=== PATIENT | male | born 1935 | race Caucasian/White ===

== ENCOUNTER 2016-09-16 11:33 | Inpatient (IN) ==
[2016-09-16] MEDS ORDERED: Acetaminophen 325 MG TABLET PO PRN (14:46)
[2016-09-16] MEDS ORDERED: Naloxone 0.4 MG/ML INJ IVP PRN (14:46)
[2016-09-16] MEDS ORDERED: *HR* Dextrose 50 % in Water (Syg) 50 ML SYRINGE IVP PRN (14:51)
[2016-09-16] MEDS ORDERED: Dextrose Gel 15 GM PO PRN ×2 (14:51)
[2016-09-16] MEDS ORDERED: D5% in Water 1,000 ML IVC PRN (14:51)
--- NOTE | 2016-09-16 15:18 | Internal Med History&Physical ---
<Danie Cronin - Last Filed: 09/16/16 18:00> Date of Encounter: 09/16/16 Internal Medicine - H&P: HPI History of present illness: Mr. Macias is a 81 year old male Internal Medicine - H&P: Meds Aspirin 81 mg PO DAILY 09/16/16 [History] Atorvastatin [Lipitor] 10 mg PO HS 09/16/16 [History] BuPROPion [Wellbutrin] 75 mg PO BID 09/16/16 [History] Citalopram Hydrobromide [Celexa] 10 mg PO DAILY 09/16/16 [History] Glimepiride [Amaryl] 1 mg PO DAILY 09/16/16 [History] Lovastatin 40 mg PO DAILY 09/16/16 [History] Memantine [Namenda] 10 mg PO DAILY 09/16/16 [History] Metformin HCl [Glucophage] 1,000 mg PO BID 09/16/16 [History] Metoprolol XL (24 HR) Succ [Toprol XL] 25 mg PO DAILY 09/16/16 [History] Omeprazole [PriLOSEC] 20 mg PO DAILY 09/16/16 [History] Allergies No Known Allergies Allergy (Verified 09/16/16 15:10) All Systems PM: A 10-system review of systems was performed and is negative for pertinent findings except as documented above in the HPI. - Constitutional Vitals: Temp Pulse Resp BP Pulse Ox 97.8 F 73 16 118/79 94 09/16/16 15:18 09/16/16 15:18 09/16/16 15:18 09/16/16 15:18 09/16/16 15:18 Internal Med - H&P Results - Labs Labs: Cardiac Enzymes 09/16/16 Range/Units 15:50 Troponin I 0.01 (0-0.03) ng/mL - Attending Attestation I examined this patient and my medical decision-making was reviewed with the Advanced Practice Nurse. I agree with the documented findings, disposition and treatment plan as described except to the extent set forth below. Pt cannot provide history due to dementia. He is very uncomfortable due to pain. Right lower extremity is shortened and externally rotated. Plan: Pain control with Vicodin and IV morphine. He does have a history of CAD status post CABG. He does not have decompensated heart disease, no valvular disease, no uncontrolled arrhythmia. Based on comorbidities and unknown exercise capacity he carries a moderate postoperative risk. He does not require any further cardiovascular workup as this would be more detrimental to his clinical condition given the urgency of the surgery. Okay to proceed with surgical repair tomorrow. He is at high risk for morbidity and complications due to treatment with IV opiates and poor baseline mental status. <Demetrice Collins - Last Filed: 09/16/16 21:56> Date of Encounter: 09/16/16 Time of Encounter: 15:15 Assessment and Plan (1) Hip fracture, intertrochanteric Current visit: Yes Status: Acute Patient had mechanical fall and was found to have right hip communuted intertrochanteric hip fracture, transferred from [facility]. On exam, right leg is shortened and externally rotated. Peripheral pulses, sensation intact. Orthopedic surgery, Dr. Carr consulted and plans to perform surgery tomorrow. Bedrest Morphine PRN for pain Narcan PRN for respiratory depression NPO after midnight for planned surgery. Qualifiers: Encounter type: initial encounter Fracture type: closed Fracture alignment: displaced Laterality: right Qualified Code(s): S72.141A - Displaced intertrochanteric fracture of right femur, initial encounter for closed fracture (2) CAD (coronary artery disease) Current visit: Yes Status: Acute Patient with CAD, s/p CABG in 2006. Patient denies any chest pain or shortness of breath. troponin negative. EKG showed sinus rhythm with occasional PVCs. Will trend troponins in case fall was evidence of silent UT. Patient also has pacemaker for history of sick sinus syndrome. Patient is intermediate risk for surgery based on his cardiac history. Qualifiers: Coronary Disease-Associated Artery/Lesion type: [place] artery [place] vs. transplanted heart: [place] heart Associated angina: angina presence unspecified Qualified Code(s): I25.10 - Atherosclerotic heart disease of [place] coronary artery without angina pectoris (3) Type 2 diabetes mellitus Current visit: Yes Status: Acute diabetic diet. check blood sugars ACHS, and Q6hr while NPO Hold metformin and glimeperide sliding scale correction dose ACHS, and Q6h while NPO hypoglycemic protocol. 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 Continue home dose of Namenda. Fall precautions. Qualifiers: Dementia type: Alzheimer's disease Alzheimer's disease onset: unspecified onset Dementia behavioral disturbance: with behavioral disturbance Qualified Code(s): G30.8 - Other Alzheimer's disease; F02.81 - Dementia in other diseases classified elsewhere with behavioral disturbance (5) DVT prophylaxis Current visit: Yes Status: Acute sequential compression devices start pharmacologic prophylaxis after surgery tomorrow. Internal Medicine - H&P: HPI Chief complaint: fall, hip pain Admitted From: Emergency Dept Plans for Post Hospital Care: Home History of present illness: Mr. Macias is a 81 year old male with diabetes, hypertension, coronary artery disease status post CABG in 2006, sick sinus syndrome status post pacemaker placement, COPD, advanced dementia who was transferred from [facility] after suffering a fall and hip fracture. Patient was in the geropsychiatry unit for worsening dementia with aggressive behavior, and fell while there, he was unable to get him up because of right hip in the pain. He was brought to the emergency department where x-ray reveals comminuted intertrochanteric hip fracture. Patient is oriented to person only, and is able to verbalize pain in his right leg, but denies any other complaints. Other evaluation at [facility] [place] normal troponin, normal white blood cell count of 7.7, elevated creatinine of 1.43, however unknown baseline. CT of the head showed marked atrophy and chronic ischemic changes, CT of the cervical spine showed no fracture. On exam, patient is alert, oriented to person only, does follow commands. Lungs are clear to auscultation bilaterally, heart has regular rate and rhythm, right leg is shortened and externally rotated with tenderness to palpation over hip and right upper leg. Past Med Surg Social Fam HX - Past Medical History Medical history: COPD, coronary artery disease, dementia, diabetes, hyperlipidemia, hypertension, myocardial infarction Psychiatric history: other - Past Surgical History Surgical History: coronary bypass (CABG), herniorrhaphy, orthopedic, other ( back surgery), pacemaker - Social History Smoking Status: Former smoker Smokeless Tobacco Status: No Alcohol use: none Drug use: none - Family History Mother Living Status: Hx Family Endocrine Disorder: Yes (diabetes) ROS unobtainable: due to mental status All Systems PM: A 10-system review of systems was performed and is negative for pertinent findings except as documented above in the HPI. - Head Head exam: Present: atraumatic, normocephalic - Eye Eye exam: Present: PERRL, conjuntiva pink, sclera anicteric Pupils: Present: PERRL - Neck Neck exam general surgery: Present: supple, trachea midline. Absent: lymphadenopathy - Respiratory Respiratory exam: Present: CTAB. Absent: accessory muscle use, rales, rhonchi, wheezes - Cardiovascular Cardiovascular exam: Present: RRR, +S1, +S2. Absent: diastolic murmur, gallop, rubs, systolic murmur - GI/Abdominal GI/Abdominal exam: Present: normal bowel sounds, soft, no peritoneal signs. Absent: distended, tenderness - Extremities Exam Extremities exam: Present: warm, radial pulses palpable and symetrical. Absent : calf tenderness, cyanotic, pedal edema Additional comments: right leg shortened and externally rotated. Tender to palpation over hip, thigh and knee. - Neurological Exam Neurological exam: Present: CN II-XII intact. Absent: oriented X3, facial droop , speech deficit - Skin Skin exam: Present: dry, intact Internal Med - H&P Results - Labs Labs: Labs from [facility]: Hgb 12.8 Hct 38 WBC 7.7 PLT 195 Na 139 K 4.4 Cl 102 CO2 28 BUN 37 Cr 1.43 Glu 161 PT 15.6 INR 1.52 PTT 23.6
[2016-09-16 15:40] LABS: Hemoglobin A1C 6.2 %
[2016-09-16] MEDS: 0.9 % Sodium Chloride 1,000 ML IVC SCH (15:59)
[2016-09-16] MEDS: *HR* HYDROcodone/Acet 5/325 mg TABLET PO PRN ×2 (16:09→20:27)
[2016-09-16] MEDS ORDERED: Insulin LISPRO 300 UNITS/3 ML VIAL SQ SCH ×2 (16:30→21:00)
[2016-09-16] MEDS: *HR* Morphine 2 MG/ML SYRINGE IVP PRN (17:27)
--- NOTE | 2016-09-16 19:01 | Anesthesia Evaluation PreOp ---
Date of Encounter: 09/16/16 Time of Encounter: 18:59 - Past History Planned Operation: Right Hip TFN Cardiac History: NH, HTN, Hyperlipidemia, Cardiac Surgery (CABG x 3), Pacemaker/ ICD (medtronic pacemaker on right side) Pulmonary History: Former smoker (quit 15 years ago), COPD HISTORIAN DRAMATIC ARTS History: Other (Alzheimer's) Other Medical History: Diabetes Type II Anesthesia History: No Prior Anesthetic Complications, Past Anesthesia Alcohol Use: none Drug use: none Medications and Allergies Aspirin 81 mg PO DAILY 09/16/16 [History] Atorvastatin [Lipitor] 10 mg PO HS 09/16/16 [History] BuPROPion [Wellbutrin] 75 mg PO BID 09/16/16 [History] Citalopram Hydrobromide [Celexa] 10 mg PO DAILY 09/16/16 [History] Glimepiride [Amaryl] 1 mg PO DAILY 09/16/16 [History] Lovastatin 40 mg PO DAILY 09/16/16 [History] Memantine [Namenda] 10 mg PO DAILY 09/16/16 [History] Metformin HCl [Glucophage] 1,000 mg PO BID 09/16/16 [History] Metoprolol XL (24 HR) Succ [Toprol XL] 25 mg PO DAILY 09/16/16 [History] Omeprazole [PriLOSEC] 20 mg PO DAILY 09/16/16 [History] Allergies No Known Allergies Allergy (Verified 09/16/16 15:10) - Meds/Allergy Pre-op Review Medications Reviewed: Yes Allergies Reviewed: Yes Beta Blockers on Current Med List: Yes Anesthesia Results - Imaging Additional studies: 05/25/2011 Stress Impression: Stress Note * Resting ECG demonstrated normal sinus rhythm. * Occasional PVCs noted prior to exam beginning. * Pharmacologic stress ECG is non diagnostic for ischemia due to did not reach target heart rate. Gated EF % * Gated EF = 60% Nuclear comments * Negative for ischemia. * Negative for infarct. My Category * small infero septal defect - probable artifact 05/25/2011 Echo Impressions: Left Ventricle * LVEF 60 % * Left Ventricle: Normal size, function and thickness. Aortic Valve * The aortic valve is Tricuspid. * Aortic valve is mildly sclerotic. * Mild aortic regurgitation. Anesthesia Exam Vital Signs/O2 Sat/Glucose, Most Recent Temp Pulse Resp BP Pulse Ox 97.8 F 73 16 118/79 94 09/16/16 15:18 09/16/16 15:18 09/16/16 15:18 09/16/16 15:18 09/16/16 15:18 Blood Glucose* 203 Height: 5'6''/1.68 m Weight: 174 lbs/78.9 kg - HEENT Mallampati: II Teeth: Edentulous Oral Opening: Greater than 3 - HISTORIAN DRAMATIC ARTS LOC: Uncooperative (unable to assess), Unable to assess - Cardiac Rhythm: Regular Murmur: None - Pulmonary Breath Sounds: bilateral Clear Respiratory Effort: Symmetrical Anesthesia Assess/Plan ASA Score: 3 Modified [place] Scale for Level of Consciousness: Anixous, agitated or restless Anesthetic Plan: General, Precautions (Patient's daughter (POA) understands that patient is at increased risk for perioperative complications including myocardial infarct, arrhythmias, CVA, post op vent support/ICU stay, and . Patient's daughter (POA) wishes to proceed.) Monitoring Plan: Standard Monitors Recovery Plan: PACU
[2016-09-17] MEDS: Insulin LISPRO 300 UNITS/3 ML VIAL SQ SCH ×4 (00:11→20:07)
[2016-09-17 04:51] LABS: Basophils # 0.1 K/mcL (0.0-0.2); Basophils % 0.6 %; Eosinophils # 0.3 K/mcL (0.0-0.6); Eosinophils % 2.8 %; Hematocrit 35.6 % (37.5-50.1); Hemoglobin 11.7 g/dL (12.9-16.9); Immature Granulocytes % 0.5 % (0-4); Lymphocytes # 0.7 K/mcL (0.6-4.6); Lymphocytes % 7.4 %; Mean Corpuscular HGB Conc 32.9 g/dL (31.6-35.5); Mean Corpuscular Hemoglobin 31.6 pg (28.0-33.3); Mean Corpuscular Volume 96.2 fL (83.0-100.0); Mean Platelet Volume 10.5 fL (9.4-12.4); Monocytes # 0.7 K/mcL (0.0-1.3); Monocytes % 7.6 %; Neutrophils # 7.5 K/mcL (1.6-8.9); Platelet Count 162 K/mcL (140-400); Red Cell Distribution Width 12.9 % (11.5-14.5); Segmented Neutrophils % 81.1 %
[2016-09-17 05:06] LABS: Calcium 8.8 mg/dL (8.6-10.8); Potassium 4.8 mEq/L (3.5-4.5)
[2016-09-17] MEDS: *HR* Morphine 2 MG/ML SYRINGE IVP PRN ×4 (05:29→23:33)
[2016-09-17] MEDS: 0.9 % Sodium Chloride 1,000 ML IVC SCH ×2 (05:34→20:22)
[2016-09-17] MEDS ORDERED: Metoprolol XL (24 HR) Succ 25 MG TAB.ER.24H PO SCH ×2 (07:00→09:00)
--- NOTE | 2016-09-17 07:11 | Orthopedic Consult Note ---
Date of Encounter: 09/17/16 Time of Encounter: 07:09 History of Present Illness HPI: Mr. Macias is a 81 year old male Who fell yesterday sustaining a injury to his right hip. Patient has history of dementia. Is here with his family. Patient awake and alert Right lower extremity shortened externally rotated Decreased range of motion secondary to pain X-rays show a displaced right intratrochanteric/subtrochanteric hip fracture Patient ambulate before plan is for right hip open reduction internal fixation. We reviewed the risks and benefits as well as recovery. All questions were answered. Past Med Surg Social Fam HX - Past Medical History Medical history: COPD, coronary artery disease, dementia, diabetes, hyperlipidemia, hypertension, myocardial infarction Psychiatric history: other - Past Surgical History Surgical History: coronary bypass (CABG), herniorrhaphy, orthopedic, other ( back surgery), pacemaker - Social History Smoking Status: Former smoker Smokeless Tobacco Status: No Alcohol use: none Drug use: none - Family History Mother Living Status: Hx Family Endocrine Disorder: Yes (diabetes) Medications and Allergies Aspirin 81 mg PO DAILY 09/16/16 [History] Atorvastatin [Lipitor] 10 mg PO HS 09/16/16 [History] BuPROPion [Wellbutrin] 75 mg PO BID 09/16/16 [History] Citalopram Hydrobromide [Celexa] 10 mg PO DAILY 09/16/16 [History] Glimepiride [Amaryl] 1 mg PO DAILY 09/16/16 [History] Lovastatin 40 mg PO DAILY 09/16/16 [History] Memantine [Namenda] 10 mg PO DAILY 09/16/16 [History] Metformin HCl [Glucophage] 1,000 mg PO BID 09/16/16 [History] Metoprolol XL (24 HR) Succ [Toprol XL] 25 mg PO DAILY 09/16/16 [History] Omeprazole [PriLOSEC] 20 mg PO DAILY 09/16/16 [History] Allergies No Known Allergies Allergy (Verified 09/16/16 15:10) All Systems Reviewed: A 10-system review of systems was performed and is negative for pertinent findings except as documented above in the HPI. Physical Exam - Constitutional Vitals: Temp Pulse Resp BP Pulse Ox 98.2 F 85 16 131/85 92 09/17/16 07:07 09/17/16 07:07 09/17/16 07:07 09/17/16 07:07 09/17/16 07:07 Results - Labs Result Diagrams: 09/17/16 04:40 09/17/16 04:40 Labs: Abnormal lab results RBC 3.70 M/mcL (4.19-5.50) L 09/17/16 04:40 Hgb 11.7 g/dL (12.9-16.9) L 09/17/16 04:40 Hct 35.6 % (37.5-50.1) L 09/17/16 04:40 Potassium 4.8 mEq/L (3.5-4.5) H 09/17/16 04:40 BUN 31 mg/dL (8-26) H 09/17/16 04:40 Creatinine 1.41 mg/dL (0.72-1.25) H 09/17/16 04:40 Est GFR ( Amer) 58 (> 60) L 09/17/16 04:40 Est GFR (Non-Af Amer) 48 (> 60) L 09/17/16 04:40 Glucose 145 mg/dL (70-99) H 09/17/16 04:40 POC Glucose 163 (58-89) H 09/16/16 23:40 Hemoglobin A1c 6.2 % (-5.6) H 09/16/16 15:05 H & H 09/17/16 Range/Units 04:40 Hgb 11.7 L (12.9-16.9) g/dL Hct 35.6 L (37.5-50.1) % All other labs normal. Consult Discharge Plan - Plan Referrals: Maribel Meeks MD [Primary Care Provider] -
[2016-09-17] MEDS ORDERED: *HR* Propofol 200 MG/20 ML VIAL IVP ONE (07:14)
[2016-09-17] MEDS ORDERED: *HR* Succinylcholine 200 MG/10 ML VIAL IVP ONE (07:14)
[2016-09-17] MEDS ORDERED: *HR* FentaNYL (PF) 100 MCG/2 ML VIAL ONE (07:14)
[2016-09-17] MEDS ORDERED: Lidocaine -MPF 2% 2 ML VIAL ONE (07:14)
[2016-09-17] MEDS ORDERED: Ondansetron 4 MG/2 ML VIAL ONE (07:14)
[2016-09-17] MEDS ORDERED: 0.9 % Sodium Chloride 500 ML ONE (07:28)
[2016-09-17] MEDS ORDERED: Famotidine 20 MG/2 ML VIAL ONE (07:32)
[2016-09-17] MEDS ORDERED: Acetaminophen IV 1,000 MG/100 ML INFUS..BTL ONE (07:33)
[2016-09-17] MEDS ORDERED: Lidocaine -MPF 4% 5 ML AMPUL ONE (07:43)
[2016-09-17] MEDS ORDERED: ceFAZolin 2,000 MG in D5% in Water (Mini-Bag+) 100 ML IVPB ONE (08:12)
[2016-09-17] MEDS ORDERED: Albuterol 2.5 MG/3 ML NEBULIZER IH ONE (08:40)
[2016-09-17] MEDS ORDERED: Albuterol 2.5 MG/3 ML NEBULIZER ONE (08:41)
--- NOTE | 2016-09-17 08:44 | Orthopedic Operative Note ---
Date of procedure: 09/17/16 Pre-op diagnosis: Displaced right intratrochanteric hip fracture Post-op diagnosis: same Procedure: Procedure: Right hip open reduction intramedullary nail fixation Estimated blood loss: 50 cc Hardware: Metal: 130 degrees: 11 x 2 35 Synthes TFN, 105 helical blade, Operative procedure: The patient was brought to the operating room and placed on the operating room table. After general anesthesia was administered the well leg was place in the well leg ocampo and the operative leg was placed in the fracture leg ocampo. All pressure points were padded appropriately. The operative extremity was prepped and draped in the sterile surgical fashion patient received IV antibiotic prior to skin incision. A standard direct lateral approach was made over the entry point of the greater trochanter, the incision was made through the skin and subcutaneous tissue hemostasis was obtained with Bovie cautery. Using careful sharp dissection the fascia was identified and incised, flouroscopic assistance was used to identify the entry point. The guidepin was placed at the entry point using fluroscopic assistance, it was over reamed with the proximal reamer. The nail was placed through the entry hole, across the fracture site into the distal fragment the position was confirmed with fluroscopy. A guide pin was placed through the proximal locking guide from the lateral femur through the nail across the fracture site into the femoral head, it was over reamed with the reamer. The 105 helical blade was placed over the guide pin through the nail into the femoral head, locked in place with the proximal locking bolt. Distal locking bolt was placed through the distal locking guide. position of hardware and fracture reduction found to be acceptable with fluroscopic assistance. The wound was irrigated. Fascia was closed with a running #2 PDS suture. The deep tissue was irrigated and closed deep with #1 PDS suture superficially with 0 PDS suture and skin luiz, patient placed in a sterile dressing extubated transferred to recovery room in stable condition. Anesthesia: GETA Surgeon: Yg Carr Condition: stable Disposition: PACU
[2016-09-17 08:58] LABS: Hematocrit 34.9 % (37.5-50.1); Hemoglobin 11.1 g/dL (12.9-16.9)
[2016-09-17] MEDS ORDERED: Dextrose Gel 15 GM PO PRN ×2 (09:28)
[2016-09-17] MEDS ORDERED: Acetaminophen 325 MG TABLET PO PRN (09:28)
[2016-09-17] MEDS ORDERED: *HR* Dextrose 50 % in Water (Syg) 50 ML SYRINGE IVP PRN (09:28)
[2016-09-17] MEDS ORDERED: Naloxone 0.4 MG/ML INJ IVP PRN ×2 (09:28)
[2016-09-17] MEDS ORDERED: D5% in Water 1,000 ML IVC PRN (09:28)
--- NOTE | 2016-09-17 09:48 | Anesthesia Evaluation Post Op ---
Date of Encounter: 09/17/16 Time of Encounter: 09:05 - Vital Signs Vital Signs: Vital Signs/O2 Sat/Glucose, Most Current Temp Pulse Resp BP Pulse Ox 09/17/16 09:34 79 14 132/96 91 09/17/16 09:07 97.4 F L 82 14 132/85 96 09/17/16 08:57 97.4 F L 84 14 134/90 95 09/17/16 08:47 78 14 122/80 94 09/17/16 08:37 78 14 131/85 99 09/17/16 08:27 97.7 F 82 12 100/72 99 09/17/16 07:11 92 09/17/16 07:07 98.2 F 85 16 131/85 92 - Lungs Lungs: Clear Ascult./Percussion - Airway Airway: Non-obstructed - Cardiovascular Regular Rate - Mental Status Mental Status: Alert & Oriented, Answers Appropriately - Pain Pain Scale: 0 - Nausea Vomiting Nausea Vomiting: Not Present - Hydration Hydration: Ice chips - Discharge PostOp Status: Transfer Patient to floor
[2016-09-17] MEDS ORDERED: Insulin LISPRO 300 UNITS/3 ML VIAL SQ SCH (12:00)
[2016-09-17] MEDS: *HR* HYDROcodone/Acet 5/325 mg TABLET PO PRN ×2 (13:39→19:52)
--- NOTE | 2016-09-17 14:41 | Internal Med Progress Note ---
Date of Encounter: 09/18/16 Time of Encounter: 14:38 - Assessment and plan (1) Accidental fall Current Visit: Yes Status: Acute Qualifiers: Encounter type: initial encounter Qualified Code(s): W19.XXXA - Unspecified fall, initial encounter (2) Hypertension Current Visit: Yes Status: Acute Qualifiers: Hypertension type: essential hypertension Qualified Code(s): I10 - Essential (primary) hypertension (3) Hip fracture, intertrochanteric Current Visit: Yes Status: Acute Qualifiers: Encounter type: initial encounter Fracture type: closed Fracture alignment: displaced Laterality: right Qualified Code(s): S72.141A - Displaced intertrochanteric fracture of right femur, initial encounter for closed fracture (4) CAD (coronary artery disease) Current Visit: Yes Status: Acute Qualifiers: Coronary Disease-Associated Artery/Lesion type: [place] artery [place] vs. transplanted heart: [place] heart Associated angina: angina presence unspecified Qualified Code(s): I25.10 - Atherosclerotic heart disease of [place] coronary artery without angina pectoris (5) Type 2 diabetes mellitus Current Visit: Yes Status: Acute Qualifiers: Diabetes mellitus complication status: with unspecified complications Diabetes mellitus rn long term care insulin use: without fci use Qualified Code( s): E11.8 - Type 2 diabetes mellitus with unspecified complications (6) Dementia Current Visit: Yes Status: Acute Qualifiers: Dementia type: Alzheimer's disease Alzheimer's disease onset: unspecified onset Dementia behavioral disturbance: with behavioral disturbance Qualified Code(s): G30.8 - Other Alzheimer's disease; F02.81 - Dementia in other diseases classified elsewhere with behavioral disturbance (7) DVT prophylaxis Current Visit: Yes Status: Acute (8) Dyspnea and respiratory abnormalities Current Visit: Yes Status: Acute (9) COPD exacerbation Current Visit: Yes Status: Acute - Subjective Interval history: Mr. Dick Killian to her home is 81-year-old male with advanced dementia also has history of coronary artery disease diabetes hypertension dyslipidemia history of sick sinus syndrome status post pacemaker COPD. He came in because at shelter he fell and broke his right hip. He underwent hip surgery today including open reduction and internal fixation of right femur. Patient is pleasantly confused awake. He is wearing a nasal mask with 4 L oxygen. According to RN Since surgery he has been having trouble keeping his oxygen saturation up. He is very borderline on 4 L oxygen is only 89% O2 sats. We will order a chest x-ray to IR since granddaughter was told me that today he smoked all his life but he is not on any inhalers at shelter. For now I will start him on nebulizer treatment... - Constitutional Vitals: Temp Pulse Resp BP Pulse Ox 97.8 F 81 16 137/83 91 09/17/16 11:30 09/17/16 11:30 09/17/16 11:30 09/17/16 11:30 09/17/16 10:51 - Head Head exam: Present: atraumatic, normocephalic - Eye Eye exam: Present: PERRL, conjuntiva pink, sclera anicteric Pupils: Present: PERRL - Neck Neck exam general surgery: Present: supple, trachea midline. Absent: lymphadenopathy - Respiratory Respiratory exam: Present: decreased breath sounds. Absent: accessory muscle use, rales, rhonchi, wheezes - Cardiovascular Cardiovascular exam: Present: RRR, +S1, +S2. Absent: diastolic murmur, gallop, rubs, systolic murmur - GI/Abdominal GI/Abdominal exam: Present: normal bowel sounds, soft, no peritoneal signs. Absent: distended, tenderness - Extremities Exam Extremities exam: Present: warm, radial pulses palpable and symetrical. Absent : calf tenderness, cyanotic, pedal edema - Neurological Exam Neurological exam: Present: alert, no focal deficits. Absent: pronater drift, facial droop, speech deficit - Skin Skin exam: Present: dry, intact Internal Medicine: Result - Labs CBC & Chem 7: 09/18/16 05:21 09/17/16 04:40 Labs: Short CBC 09/17/16 09/17/16 Range/Units 04:40 08:48 WBC 9.2 (4.3-11.1) K/mcL Hgb 11.7 L 11.1 L (12.9-16.9) g/dL Hct 35.6 L 34.9 L (37.5-50.1) % Plt Count 162 (140-400) K/mcL Neutrophils # 7.5 (1.6-8.9) K/mcL BMP 09/17/16 04:40 Sodium 139 Potassium 4.8 H Chloride 105 Carbon Dioxide 23 BUN 31 H Creatinine 1.41 H Glucose 145 H Calcium 8.8 Cardiac Enzymes 09/16/16 09/16/16 Range/Units 15:50 21:03 Troponin I 0.01 0.02 (0-0.03) ng/mL - Impressions Impressions Fluoroscopy 09/17/16 00:00 IMPRESSION: Intraprocedural fluoroscopic spot images as above. See separate procedure report for more information. D/ / 09/17/2016 10:33:11 Wojciech Martinez MD / carla Interpreting Provider: Wojciech Martinez MD Consult Discharge Plan - Plan Referrals: Maribel Meeks MD [Primary Care Provider] -
[2016-09-17] MEDS: ceFAZolin 2,000 MG in D5% in Water 100 ML IVPB SCH ×2 (15:20→23:33)
[2016-09-17] MEDS ORDERED: Albuterol 2.5 MG/3 ML NEBULIZER IH PRN (18:57)
[2016-09-17] MEDS ORDERED: Furosemide 20 MG/2 ML VIAL IVP STA (18:59)
[2016-09-17] MEDS: Ipratropium/Albuterol Neb 3 ML IH SCH ×2 (21:41→23:15)
[2016-09-18] MEDS: Ipratropium/Albuterol Neb 3 ML IH SCH ×4 (05:14→23:23)
[2016-09-18] MEDS: *HR* HYDROcodone/Acet 5/325 mg TABLET PO PRN ×3 (05:43→21:52)
[2016-09-18 05:53] LABS: Hematocrit 33.4 % (37.5-50.1); Hemoglobin 10.7 g/dL (12.9-16.9)
[2016-09-18] MEDS: Insulin LISPRO 300 UNITS/3 ML VIAL SQ SCH ×3 (08:50→17:48)
[2016-09-18] MEDS: Metoprolol XL (24 HR) Succ 25 MG TAB.ER.24H PO SCH (08:50)
--- NOTE | 2016-09-18 10:06 | Orthopedics Progress Note ---
Date of Encounter: 09/18/16 Time of Encounter: 10:06 Subjective Interval history: Patient was seen this morning doing well without complaints. Afebrile vital signs stable. Operative extremity: Neurovascularly intact Dressing clean dry and intact Calves nontender Assessment and plan: Continue with postoperative care ortho stable Objective Vital signs: Vital Signs Temp Pulse Resp BP Pulse Ox 09/18/16 09:10 18 92 09/18/16 08:34 94 18 114/70 95 09/18/16 06:40 97.6 F 94 18 114/70 95 09/18/16 05:14 16 93 09/18/16 04:04 98.9 F 103 18 151/90 96 09/17/16 23:48 98.6 F 94 20 119/76 95 09/17/16 23:15 18 92 09/17/16 20:42 98.2 F 95 20 133/90 94 09/17/16 11:30 97.8 F 81 16 137/83 09/17/16 10:51 98.0 F 87 14 128/78 91 09/17/16 10:30 97.8 F 80 14 104/52 Intake and Output 09/17/16 09/18/16 09/18/16 23:59 07:59 15:59 Intake Total 200 / 200 100 / 100 Output Total 750 / 750 850 / 850 Balance -550 / -550 -750 / -750 Intake: IV Fluids 100 / 100 Ancef 2,000 MG In 100 / 100 Dextrose 5% 100 ML @ 200 mls/hr IVPB Q8H [facility] Rx#: [id number] Oral 100 / 100 100 / 100 Output: Catheter 750 / 750 850 / 850 Other: Blood Glucose* 141 182 - Labs CBC & BMP: 09/18/16 05:21 09/17/16 04:40 Labs: Abnormal lab results RBC 3.70 M/mcL (4.19-5.50) L 09/17/16 04:40 Hgb 10.7 g/dL (12.9-16.9) L 09/18/16 05:21 Hct 33.4 % (37.5-50.1) L 09/18/16 05:21 Potassium 4.8 mEq/L (3.5-4.5) H 09/17/16 04:40 BUN 31 mg/dL (8-26) H 09/17/16 04:40 Creatinine 1.41 mg/dL (0.72-1.25) H 09/17/16 04:40 Est GFR ( Amer) 58 (> 60) L 09/17/16 04:40 Est GFR (Non-Af Amer) 48 (> 60) L 09/17/16 04:40 Glucose 145 mg/dL (70-99) H 09/17/16 04:40 POC Glucose 141 (58-89) H 09/17/16 20:03 Hemoglobin A1c 6.2 % (-5.6) H 09/16/16 15:05 - VTE Documentation of Mechanical Device: Venous foot pump, device Consult Discharge Plan - Plan Referrals: Maribel Meeks MD [Primary Care Provider] -
--- NOTE | 2016-09-18 16:31 | Internal Med Progress Note ---
Date of Encounter: 09/18/16 Time of Encounter: 16:27 - Assessment and plan (1) Accidental fall Current Visit: Yes Status: Acute Qualifiers: Encounter type: initial encounter Qualified Code(s): W19.XXXA - Unspecified fall, initial encounter (2) Hypertension Current Visit: Yes Status: Acute Qualifiers: Hypertension type: essential hypertension Qualified Code(s): I10 - Essential (primary) hypertension (3) Hip fracture, intertrochanteric Current Visit: Yes Status: Acute Qualifiers: Encounter type: initial encounter Fracture type: closed Fracture alignment: displaced Laterality: right Qualified Code(s): S72.141A - Displaced intertrochanteric fracture of right femur, initial encounter for closed fracture (4) CAD (coronary artery disease) Current Visit: Yes Status: Acute Qualifiers: Coronary Disease-Associated Artery/Lesion type: [place] artery [place] vs. 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 [employer] insulin use: without halfway use Qualified Code( s): E11.8 - Type 2 diabetes mellitus with unspecified complications (6) Dementia Current Visit: Yes Status: Acute Qualifiers: Dementia type: Alzheimer's disease Alzheimer's disease onset: unspecified onset Dementia behavioral disturbance: with behavioral disturbance Qualified Code(s): G30.8 - Other Alzheimer's disease; F02.81 - Dementia in other diseases classified elsewhere with behavioral disturbance (7) DVT prophylaxis Current Visit: Yes Status: Acute (8) Dyspnea and respiratory abnormalities Current Visit: Yes Status: Acute (9) COPD exacerbation Current Visit: Yes Status: Acute (10) Congestive heart failure as early postoperative complication Current Visit: Yes Status: Acute Assessment and plan: Not sure if it is systolic or diastolic and we have 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 - Subjective Interval history: Mr. Dick Killian to her home is 81-year-old male with advanced dementia also has history of coronary artery disease diabetes hypertension dyslipidemia history of sick sinus syndrome status post pacemaker COPD. He came in because at shelter he fell and broke his right hip. He underwent hip surgery today including open reduction and internal fixation of right femur. Patient is pleasantly confused awake. He is wearing a nasal mask with 4 L oxygen. According to RN Since surgery he has been having trouble keeping his oxygen saturation up. He is very borderline on 4 L oxygen is only 89% O2 sats. We will order a chest x-ray to IR since granddaughter was told me that today he smoked all his life but he is not on any inhalers at shelter. For now I will start him on nebulizer treatment... 09/18 patient seems much comfortable now. He was restarted on Lasix and nebulizers. Chest x-ray reviewed and it shows mild congestive heart failure with cardiomegaly. He has history of coronary artery disease and open heart surgery. His oxygen was titrated and now he is on 3 L. We have requested echo from Dr. Kate's office and RN has been informed to obtain a copy for us. Discussed with family. - Constitutional Vitals: Temp Pulse Resp BP Pulse Ox 97.8 F 103 18 126/76 94 09/18/16 15:32 09/18/16 15:32 09/18/16 15:32 09/18/16 15:32 09/18/16 11:20 - Head Head exam: Present: atraumatic, normocephalic - Eye Eye exam: Present: PERRL, conjuntiva pink, sclera anicteric Pupils: Present: PERRL - Neck Neck exam general surgery: Present: supple, trachea midline. Absent: lymphadenopathy - Respiratory Respiratory exam: Present: CTAB. Absent: accessory muscle use, rales, rhonchi, wheezes - Cardiovascular Cardiovascular exam: Present: RRR, +S1, +S2. Absent: diastolic murmur, gallop, rubs, systolic murmur - GI/Abdominal GI/Abdominal exam: Present: normal bowel sounds, soft, no peritoneal signs. Absent: distended, tenderness - Extremities Exam Extremities exam: Present: warm, radial pulses palpable and symetrical. Absent : calf tenderness, cyanotic, pedal edema - Neurological Exam Neurological exam: Present: CN II-XII intact, no focal deficits. Absent: pronater drift, facial droop, speech deficit Additional comments: Awake follow commands pleasantly confused - Skin Skin exam: Present: dry, intact Internal Medicine: Result - Labs CBC & Chem 7: 09/18/16 05:21 09/17/16 04:40 Labs: Short CBC 09/18/16 Range/Units 05:21 Hgb 10.7 L (12.9-16.9) g/dL Hct 33.4 L (37.5-50.1) % - Impressions Impressions Fluoroscopy 09/17/16 00:00 IMPRESSION: Intraprocedural fluoroscopic spot images as above. See separate procedure report for more information. D/ / 09/17/2016 10:33:11 Wojciech Martinez MD / carla Interpreting Provider: Wojciech Martinez MD Chest X-Ray 09/17/16 18:55 IMPRESSION: 1. Stable low lung volumes with mild pulmonary vascular congestion. D/ / Yogi Pena MD / Yogi Pena MD Interpreting Provider: Yogi Pena MD - VTE Documentation of Mechanical Device: Venous foot pump, device Consult Discharge Plan - Plan Referrals: Maribel Meeks MD [Primary Care Provider] -
--- NOTE | 2016-09-18 16:45 | Electrocardiograph Report ---
[place] [id number] Test Date: 2016-09-16 Pat Name: Julia Macias Department: 114 Room: [facility] Gender: M Director Of Rotc: DUSTIN : 1935 Requested By: Rich Clay Order Number: [id number] Reading MD: Vargas Brothers MD Measurements Intervals [place] Rate: 99 P: 34 ND: 155 QRS: -16 QRSD: 105 T: 3 QT: 360 QTc: 416 Interpretive Statements SINUS RHYTHM Electronically Signed On 09-18-2016 16:44:00 EDT by Vargas Brothers MD
[2016-09-19] MEDS: Insulin LISPRO 300 UNITS/3 ML VIAL SQ SCH ×4 (01:24→17:16)
[2016-09-19] MEDS: *HR* Morphine 2 MG/ML SYRINGE IVP PRN ×2 (02:28→08:05)
[2016-09-19] MEDS: Ipratropium/Albuterol Neb 3 ML IH SCH ×3 (04:14→16:53)
[2016-09-19] MEDS: *HR* HYDROcodone/Acet 5/325 mg TABLET PO PRN ×2 (04:44→14:19)
[2016-09-19 06:01] LABS: Basophils % 0.3 %; Eosinophils % 0.2 %; Hematocrit 34.6 % (37.5-50.1); Hemoglobin 11.2 g/dL (12.9-16.9); Immature Granulocytes % 0.7 % (0-4); Lymphocytes # 0.9 K/mcL (0.6-4.6); Lymphocytes % 6.5 %; Mean Corpuscular HGB Conc 32.4 g/dL (31.6-35.5); Mean Corpuscular Hemoglobin 31.1 pg (28.0-33.3); Mean Corpuscular Volume 96.1 fL (83.0-100.0); Mean Platelet Volume 11.3 fL (9.4-12.4); Monocytes # 1.1 K/mcL (0.0-1.3); Monocytes % 7.8 %; Neutrophils # 11.9 K/mcL (1.6-8.9); Platelet Count 201 K/mcL (140-400); Red Cell Distribution Width 12.8 % (11.5-14.5); Segmented Neutrophils % 84.5 %
[2016-09-19 06:06] LABS: Alanine Aminotransferase 11 Units/L (0-55); Albumin 3.1 g/dL (3.5-5.0); Albumin/Globulin Ratio 0.8 (1.1-2.2); Alkaline Phosphatase 61 Units/L (38-126); Aspartate Amino Transferase 26 Units/L (5-34); BUN/Creatinine Ratio 16 (6-26); Bilirubin,Total 0.9 mg/dL (0.2-1.2); Calcium 9.2 mg/dL (8.6-10.8); Carbon Dioxide 25 mEq/L (19-29); Chloride 101 mEq/L (98-109); Globulin 4.1 g/dL (2.4-3.5); Glucose 181 mg/dL (70-99); Osmolality,Calculated 293 (280-300); Potassium 4.2 mEq/L (3.5-4.5); Sodium 138 mEq/L (136-145); Total Protein 7.2 g/dL (6.0-8.3); eGFR For African Americans > 60 (> 60); eGFR For Non-African Americans 54 (> 60)
[2016-09-19 06:08] LABS: Blood Urea Nitrogen 20 mg/dL (8-26)
[2016-09-19 06:32] LABS: Platelet Estimate Normal (Normal)
[2016-09-19] MEDS: Metoprolol XL (24 HR) Succ 25 MG TAB.ER.24H PO SCH (07:48)
[2016-09-19] MEDS: 0.9 % Sodium Chloride 1,000 ML IVC SCH (08:05)
--- NOTE | 2016-09-19 09:45 | Discharge Summary ---
Date of Encounter: 09/19/16 Time of Encounter: 09:38 - Discharge Diagnosis (1) Accidental fall Priority: Primary Status: Acute Qualifiers: Encounter type: initial encounter Qualified Code(s): W19.XXXA - Unspecified fall, initial encounter (2) Hypertension Priority: Secondary Status: Acute Qualifiers: Hypertension type: essential hypertension Qualified Code(s): I10 - Essential (primary) hypertension (3) Hip fracture, intertrochanteric Priority: Primary Status: Acute Qualifiers: Encounter type: initial encounter Fracture type: closed Fracture alignment: displaced Laterality: right Qualified Code(s): S72.141A - Displaced intertrochanteric fracture of right femur, initial encounter for closed fracture (4) CAD (coronary artery disease) Priority: Secondary Status: Acute Qualifiers: Coronary Disease-Associated Artery/Lesion type: [place] artery [place] vs. 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: without custodial use Qualified Code( s): E11.8 - Type 2 diabetes mellitus with unspecified complications (6) Dementia Priority: Secondary Status: Acute Qualifiers: Dementia type: Alzheimer's disease Alzheimer's disease onset: unspecified onset Dementia behavioral disturbance: with behavioral disturbance Qualified Code(s): G30.8 - Other Alzheimer's disease; F02.81 - Dementia in other diseases classified elsewhere with behavioral disturbance (7) DVT prophylaxis Priority: Secondary Status: Acute (8) Dyspnea and respiratory abnormalities Priority: Secondary Status: Acute (9) COPD exacerbation Priority: Secondary Status: Acute - Discharge Medications Prescriptions: HYDROcodone/Acet 5/325 mg [[place] 5-325 mg] 1 tab PO Q4HR PRN #12 tablet PRN Reason: Moderate Pain (4-6) Furosemide [Lasix] 20 mg PO DAILY #30 tablet Ipratropium/Albuterol Sulfate [Combivent Respimat Inhal [place]] 4 gm IH QID #1 aer.w.adap Home Medications: Aspirin 81 mg PO DAILY 09/16/16 [History] Atorvastatin [Lipitor] 10 mg PO HS 09/16/16 [History] BuPROPion [Wellbutrin] 75 mg PO BID 09/16/16 [History] Citalopram Hydrobromide [Celexa] 10 mg PO DAILY 09/16/16 [History] Glimepiride [Amaryl] 1 mg PO DAILY 09/16/16 [History] Lovastatin 40 mg PO DAILY 09/16/16 [History] Memantine [Namenda] 10 mg PO DAILY 09/16/16 [History] Metformin HCl [Glucophage] 1,000 mg PO BID 09/16/16 [History] Metoprolol XL (24 HR) Succ [Toprol Xl] 25 mg PO DAILY 09/16/16 [History] Omeprazole [PriLOSEC] 20 mg PO DAILY 09/16/16 [History] Acetaminophen [Tylenol] 650 mg PO Q6HR PRN #0 tablet 09/19/16 [Rx] Docusate [Colace] 100 mg PO BID PRN #0 capsule 09/19/16 [Rx] Furosemide [Lasix] 20 mg PO DAILY #30 tablet 09/19/16 [Rx] HYDROcodone/Acet 5/325 mg [[place] 5-325 mg] 1 tab PO Q4HR PRN #12 tablet [Rx] Ipratropium/Albuterol Sulfate [Combivent Respimat Inhal [place]] 4 gm IH QID #1 aer.w.adap 09/19/16 [Rx] Allergies/Adverse Reactions: Allergies No Known Allergies Allergy (Verified 09/16/16 15:10) Procedures/tests Complete & Pending: Procedures Performed prior 72 hours Category Date Time Status ECG 12 lead ECG [ECG] Routine Y 09/16/16 20:42 Completed Date of admission: 09/16/16 14:46 Primary care physician: Maribel Meeks MD Consults: 09/16/16 15:34 Consult to [employer] [CONS] Routine Reason for SW Consult: D/C PLANNING 09/17/16 09:28 Consult to Occupational Therapy [CONS] Routine Comment: Evaluate, develop and implement POC Reason for Consult: post hip surgery Consult to Orthopedic Navigator [CONS] [CONS] Routine Consult to Physical Therapy [CONS] Routine Comment: Evaluate, develop and implement POC Reason for Consult: post hip surgery Consult to [employer] [CONS] Routine Reason for SW Consult: post -op hip fracture wants WMP RT Post Op Consult [CONS] Routine 09/17/16 15:18 Consult to Physician [CONS] Routine Consulting Provider: Yg Carr Reason for Consult: HIP FX Call Completed: No Discharging clinician: Rich Clay Anticipated date of discharge: 09/19/16 - Patient Status Disposition: Transfer SNF Condition: Fair Overall status at discharge: patient is progressing back to baseline - Discharge Instructions Follow Up With: Maribel Meeks MD [Primary Care Provider] - - Diet and Activity Activity: as per physical therapy Diet: advance to your usual diet Interval History: Mr. Dick Killian to her home is 81-year-old male with advanced dementia also has history of coronary artery disease diabetes hypertension dyslipidemia history of sick sinus syndrome status post pacemaker COPD. He came in because at senior living he fell and broke his right hip. He underwent hip surgery including open reduction and internal fixation of right femur. Patient is needing a nasal mask with 4 L oxygen. Chest x-ray showed only mild congestive heart failure but no pneumonia. It is recommended that an echo should be performed as outpatient if it has not been done in last 1 or 2 years. We started him on Lasix and Combivent and that improved his breathing significantly. Hospital course: Mr. Macias is a 81 year old male - Time Spent with Patient Total time spent providing and/or coordinating discharge services: Greater than 30 minutes - Constitutional Vitals: Temp Pulse Resp BP Pulse Ox 98.5 F 107 20 139/91 91 09/19/16 06:35 09/19/16 06:35 09/19/16 06:35 09/19/16 06:35 09/19/16 06:35 - Head Head exam: Present: atraumatic, normocephalic - Eye Eye exam: Present: PERRL, conjuntiva pink, sclera anicteric Pupils: Present: PERRL - Neck Neck exam general surgery: Present: supple, trachea midline. Absent: lymphadenopathy - Respiratory Respiratory exam: Present: CTAB. Absent: accessory muscle use, rales, rhonchi, wheezes - Cardiovascular Cardiovascular exam: Present: RRR, +S1, +S2. Absent: diastolic murmur, gallop, rubs, systolic murmur - GI/Abdominal GI/Abdominal exam: Present: normal bowel sounds, soft, no peritoneal signs. Absent: distended, tenderness - Extremities Exam Extremities exam: Present: warm, radial pulses palpable and symetrical. Absent : calf tenderness, cyanotic, pedal edema - Neurological Exam Neurological exam: Present: oriented X3, no focal deficits. Absent: pronater drift, facial droop, speech deficit Additional comments: Does not she confused Moving all extremities following commands underlying dementia - Skin Skin exam: Present: dry, intact - VTE Documentation of Mechanical Device: Venous foot pump, device
[2016-09-19 15:09] VITALS: BP 146/98
--- NOTE | 2016-09-19 16:32 | Physician Discharge Referral ---
ExtendedCare Referral Info Transfer To: [facility] Provider in Charge: SARA Provider in Charge after Transfer: PCP Institutional Level of Care: Skilled - Diagnosis (1) Accidental fall Status: Acute (2) Hypertension Status: Acute (3) Hip fracture, intertrochanteric Status: Acute (4) CAD (coronary artery disease) Status: Acute (5) Type 2 diabetes mellitus Status: Acute (6) Dementia Status: Acute (7) DVT prophylaxis Status: Acute (8) Dyspnea and respiratory abnormalities Status: Acute (9) COPD exacerbation Status: Acute - Transfer Medications Prescriptions: HYDROcodone/Acet 5/325 mg [[place] 5-325 mg] 1 tab PO Q4HR PRN #12 tablet PRN Reason: Moderate Pain (4-6) Furosemide [Lasix] 20 mg PO DAILY #30 tablet Ipratropium/Albuterol Sulfate [Combivent Respimat Inhal [place]] 4 gm IH QID #1 aer.w.adap Home Medications: Aspirin 81 mg PO DAILY 09/16/16 [History] Atorvastatin [Lipitor] 10 mg PO HS 09/16/16 [History] BuPROPion [Wellbutrin] 75 mg PO BID 09/16/16 [History] Citalopram Hydrobromide [Celexa] 10 mg PO DAILY 09/16/16 [History] Glimepiride [Amaryl] 1 mg PO DAILY 09/16/16 [History] Lovastatin 40 mg PO DAILY 09/16/16 [History] Memantine [Namenda] 10 mg PO DAILY 09/16/16 [History] Metformin HCl [Glucophage] 1,000 mg PO BID 09/16/16 [History] Metoprolol XL (24 HR) Succ [Toprol Xl] 25 mg PO DAILY 09/16/16 [History] Omeprazole [PriLOSEC] 20 mg PO DAILY 09/16/16 [History] Acetaminophen [Tylenol] 650 mg PO Q6HR PRN #0 tablet 09/19/16 [Rx] Docusate [Colace] 100 mg PO BID PRN #0 capsule 09/19/16 [Rx] Furosemide [Lasix] 20 mg PO DAILY #30 tablet 09/19/16 [Rx] HYDROcodone/Acet 5/325 mg [[place] 5-325 mg] 1 tab PO Q4HR PRN #12 tablet [Rx] Ipratropium/Albuterol Sulfate [Combivent Respimat Inhal [place]] 4 gm QID #1 aer.w.adap 09/19/16 [Rx] Allergies/Adverse Reactions: Allergies No Known Allergies Allergy (Verified 09/16/16 15:10) - Respiratory Orders Smoking Cessation: Smoking cessation has been advised. For more information, call the [place] Tobacco Quit Line at 8-916-YTBE-NOW. CERTIFICATION: I certify that the transfer of the above named patient to an Extended Care Facility is necessary for the continuing treatment of the diagnosis listed. The above information is true and accurate reflection of patient's current condition. Confidential - Redisclosure prohibited without a patient's written consent.
== END 2016-09-19 18:30 | DRG 481 ==
LOC: 3NENU
PROVIDERS: ADMIT Internal Medicine; ATTEND Internal Medicine